=== PATIENT | male | born 1965 | race Caucasian/White ===

== ENCOUNTER 2022-10-07 22:37 | Inpatient (IN) ==
[2022-10-07] MEDS ORDERED: oxyCODONE/Acetamin 5/325 mg TAB PO ONE (22:50)
[2022-10-07 23:13] LABS: ABS Basophils 0.1 10^3/ul (0-0.2); ABS Eosinophils 0.2 10^3/ul (0-0.6); ABS Lymphocytes 1.5 10^3/ul (1.0-4.8); ABS Monocytes 1.1 10^3/ul (0-0.8); Eosinophil % 2.6 %; Hematocrit 27 % (42-52); Hemoglobin 8.1 g/dL (14.0-18.0); Lymphocyte % 16.4 %; Mean Corpuscular HGB Conc 30 g/dL (31-36); Mean Corpuscular Hemoglobin 24 pg (27-31); Mean Corpuscular Volume 79 fL (80-94); Mean Platelet Volume 7.5 fL (7.4-10.4); Platelet Count 219 10^3/uL (150-450); Red Blood Count 3.41 10^6 /uL (4.18-5.48); Red Cell Distribution Width 21 % (10-15); White Blood Count 8.9 10^3/uL (3.5-10.8)
[2022-10-07 23:18] LABS: INR 1.51 (0.88-1.18)
[2022-10-07 23:48] LABS: AST 11 U/L (13-39); Albumin 1.9 g/dL (3.2-5.2); Albumin/Globulin Ratio 0.6 (1-3); Alkaline Phosphatase 135 U/L (35-149); Anion Gap 8 mmol/L (2-11); Blood Urea Nitrogen 41 mg/dL (6-24); CO2 Carbon Dioxide 23 mmol/L (22-32); Calcium 7.3 mg/dL (8.6-10.3); Chloride 101 mmol/L (101-111); Creatinine, Serum 4.25 mg/dL (0.67-1.17); Glucose 61 mg/dL (70-100); Potassium 4.2 mmol/L (3.5-5.0); Sodium 132 mmol/L (135-145); Total Protein 4.9 g/dL (6.4-8.9); eGFR CKD-EPI 15.7 (>60)
[2022-10-07 23:53] LABS: ALT < 3 U/L (7-52)
[2022-10-08] MEDS ORDERED: Dextrose 50% Syringe 50 ml 25 GM/50 ML SYRINGE IV PUSH PRN (00:23)
[2022-10-08] MEDS ORDERED: HYDROmorphone 0.5 MG/0.5 ML SYRINGE IV SLOW PU ONE (01:31)
[2022-10-08 06:49] LABS: ABS Basophils 0.1 10^3/ul (0-0.2); ABS Eosinophils 0.3 10^3/ul (0-0.6); ABS Lymphocytes 1.3 10^3/ul (1.0-4.8); ABS Monocytes 1.1 10^3/ul (0-0.8); ABS Neutrophils 6.6 10^3/ul (1.5-7.7); Eosinophil % 3.2 %; Hematocrit 29 % (42-52); Hemoglobin 8.7 g/dL (14.0-18.0); Lymphocyte % 13.8 %; Mean Corpuscular HGB Conc 31 g/dL (31-36); Mean Corpuscular Hemoglobin 24 pg (27-31); Mean Corpuscular Volume 78 fL (80-94); Mean Platelet Volume 7.6 fL (7.4-10.4); Platelet Count 239 10^3/uL (150-450); Red Blood Count 3.64 10^6 /uL (4.18-5.48); Red Cell Distribution Width 21 % (10-15); White Blood Count 9.3 10^3/uL (3.5-10.8)
[2022-10-08 07:14] LABS: AST 10 U/L (13-39); Albumin 1.9 g/dL (3.2-5.2); Albumin/Globulin Ratio 0.7 (1-3); Alkaline Phosphatase 147 U/L (35-149); Anion Gap 7 mmol/L (2-11); Blood Urea Nitrogen 45 mg/dL (6-24); CO2 Carbon Dioxide 25 mmol/L (22-32); Calcium 7.3 mg/dL (8.6-10.3); Chloride 100 mmol/L (101-111); Creatinine, Serum 4.42 mg/dL (0.67-1.17); Globulin 2.9 g/dL (2-4); Glucose 59 mg/dL (70-100); Sodium 132 mmol/L (135-145); Total Protein 4.8 g/dL (6.4-8.9); eGFR CKD-EPI 14.9 (>60)
[2022-10-08 07:16] LABS: ALT < 3 U/L (7-52)
[2022-10-08] MEDS: CMCS: Fidaxomicin 200 mg TAB (NF) PO SCH ×2 (09:28→22:01)
[2022-10-08 10:49] LABS: Magnesium 1.5 mg/dL (1.9-2.7)
[2022-10-08 10:55] LABS: C Reactive Protein 83.61 mg/L (<8.01)
[2022-10-08] MEDS ORDERED: Magnesium Sulf 4 GM/100 ML IV 4,000 MG/100 ML BAG IVPB ONE (11:12)
[2022-10-08] MEDS: HYDROmorphone 0.5 MG/0.5 ML SYRINGE IV SLOW PU PRN ×2 (11:40→18:17)
[2022-10-08] MEDS: Albumin Human 5% 12.5 GM/250 ML BTL IV PRN (12:54)
[2022-10-08 14:44] LABS: Hepatitis B Surface Antigen Nonreactive (Nonreactive)
[2022-10-08] MEDS: Heparin 1,000 UNIT/ML 10 ml (10,000 UNITS) CATHLAB/DIALYSIS DIALYSIS SCH ×2 (15:33→16:41)
[2022-10-08] MEDS: oxyCODONE/Acetamin 5/325 mg TAB PO PRN ×2 (16:35→22:50)
[2022-10-08 17:19] LABS: Hepatitis B Surface Ab Not Immune (Immune)
[2022-10-09] MEDS: HYDROmorphone 0.5 MG/0.5 ML SYRINGE IV SLOW PU PRN ×4 (01:36→21:01)
[2022-10-09] MEDS: oxyCODONE/Acetamin 5/325 mg TAB PO PRN ×3 (06:02→18:23)
[2022-10-09 06:48] LABS: Calcium 7.5 mg/dL (8.6-10.3); Magnesium 2.1 mg/dL (1.9-2.7)
[2022-10-09 06:53] LABS: Creatinine, Serum 3.56 mg/dL (0.67-1.17); eGFR CKD-EPI 19.4 (>60)
[2022-10-09] MEDS: CMCS: Fidaxomicin 200 mg TAB (NF) PO SCH ×2 (08:53→21:29)
[2022-10-10] MEDS: HYDROmorphone 0.5 MG/0.5 ML SYRINGE IV SLOW PU PRN ×4 (01:27→14:20)
[2022-10-10] MEDS: CMCS: Fidaxomicin 200 mg TAB (NF) PO SCH ×2 (07:54→20:09)
[2022-10-10] MEDS: oxyCODONE/Acetamin 5/325 mg TAB PO PRN ×3 (07:55→22:52)
[2022-10-10] MEDS: Albumin Human 5% 12.5 GM/250 ML BTL IV PRN (10:34)
[2022-10-10] MEDS ORDERED: Albumin Human 25% 25 GM/100 ML BTL IV ONE (11:25)
[2022-10-10] MEDS: Heparin 1,000 UNIT/ML 10 ml (10,000 UNITS) CATHLAB/DIALYSIS DIALYSIS SCH (13:43)
[2022-10-10] MEDS ORDERED: HYDROmorphone 0.5 MG/0.5 ML SYRINGE IV SLOW PU PRN (15:45)
[2022-10-10] MEDS: HYDROmorphone 1 MG/1 ML SYRINGE IV SLOW PU PRN ×2 (17:58→22:51)
[2022-10-11] MEDS: HYDROmorphone 1 MG/1 ML SYRINGE IV SLOW PU PRN ×4 (02:02→20:01)
[2022-10-11 04:51] LABS: ABS Basophils 0.1 10^3/ul (0-0.2); ABS Eosinophils 0.2 10^3/ul (0-0.6); ABS Lymphocytes 2.1 10^3/ul (1.0-4.8); ABS Monocytes 1.4 10^3/ul (0-0.8); ABS Neutrophils 7.7 10^3/ul (1.5-7.7); Eosinophil % 1.4 %; Hematocrit 22 % (42-52); Hemoglobin 6.4 g/dL (14.0-18.0); Lymphocyte % 18.2 %; Mean Corpuscular HGB Conc 30 g/dL (31-36); Mean Corpuscular Hemoglobin 23 pg (27-31); Mean Corpuscular Volume 79 fL (80-94); Platelet Count 200 10^3/uL (150-450); Red Blood Count 2.72 10^6 /uL (4.18-5.48); Red Cell Distribution Width 21 % (10-15); White Blood Count 11.3 10^3/uL (3.5-10.8)
[2022-10-11 05:01] LABS: % Iron Saturation 20 % (15-55); Anion Gap 1 mmol/L (2-11); Blood Urea Nitrogen 38 mg/dL (6-24); CO2 Carbon Dioxide 28 mmol/L (22-32); Calcium 7.3 mg/dL (8.6-10.3); Chloride 102 mmol/L (101-111); Creatinine, Serum 3.47 mg/dL (0.67-1.17); Iron 21 ug/dL (50-212); Magnesium 1.8 mg/dL (1.9-2.7); Phosphorus 3.3 mg/dL (2.5-5.0); Potassium 4.1 mmol/L (3.5-5.0); Sodium 131 mmol/L (135-145); Total Iron Binding Capacity 105 mcg/dL (250-450); Transferrin < 75 mg/dL (203-362); Unsaturated Iron Binding 84 ug/dL
[2022-10-11 05:14] LABS: Glucose 45 mg/dL (70-100)
[2022-10-11 05:21] LABS: Ferritin > 1500.0 ng/mL (24-336)
[2022-10-11 08:55] LABS: Indirect Bilirubin 0.3 mg/dL (0.3-1.0); LDH 128 U/L (140-271)
[2022-10-11] MEDS: CMCS: Fidaxomicin 200 mg TAB (NF) PO SCH ×2 (10:49→20:00)
[2022-10-11] MEDS: oxyCODONE/Acetamin 5/325 mg TAB PO PRN ×3 (11:02→23:57)
[2022-10-11] MEDS ORDERED: Clindamycin 600 MG/D5W BAG 600 MG/50 ML BAG IV ONE (11:36)
[2022-10-11] MEDS ORDERED: Lidocaine 1% VIAL 10 MG/ML VIAL 30 ML ONE (14:02)
[2022-10-11] MEDS ORDERED: Heparin 2 UNITS/ML IVPREMIX 2,000 UNIT/1,000 ML BAG IV ONE (14:03)
[2022-10-11] MEDS ORDERED: Iohexol 350 (CONTRAST) 100 ML PAK IV ONE (14:03)
[2022-10-11] MEDS ORDERED: fentaNYL 100 mcg/2 ml 50 MCG/ML VIAL ONE (14:23)
[2022-10-11] MEDS ORDERED: Midazolam 5 mg/5 ml VIAL 1 mg/ml 5 ml VIAL (5 mg) ONE (14:23)
[2022-10-11] MEDS ORDERED: Heparin 1,000 UNIT/ML 10 ml (10,000 UNITS) CATHLAB/DIALYSIS ONE (14:59)
[2022-10-11 16:36] LABS: Hematocrit 25 % (42-52); Hemoglobin 7.6 g/dL (14.0-18.0); Mean Corpuscular HGB Conc 31 g/dL (31-36); Mean Corpuscular Hemoglobin 24 pg (27-31); Mean Corpuscular Volume 78 fL (80-94); Mean Platelet Volume 7.9 fL (7.4-10.4); Platelet Count 198 10^3/uL (150-450); Red Blood Count 3.19 10^6 /uL (4.18-5.48); Red Cell Distribution Width 21 % (10-15); White Blood Count 8.3 10^3/uL (3.5-10.8)
[2022-10-12] MEDS: HYDROmorphone 1 MG/1 ML SYRINGE IV SLOW PU PRN ×4 (03:12→22:29)
[2022-10-12 05:31] LABS: ABS Basophils 0.1 10^3/ul (0-0.2); ABS Eosinophils 0.2 10^3/ul (0-0.6); ABS Lymphocytes 1.3 10^3/ul (1.0-4.8); ABS Monocytes 0.9 10^3/ul (0-0.8); ABS Neutrophils 7.4 10^3/ul (1.5-7.7); Eosinophil % 2.2 %; Hematocrit 27 % (42-52); Hemoglobin 8.4 g/dL (14.0-18.0); Lymphocyte % 13.2 %; Mean Corpuscular HGB Conc 31 g/dL (31-36); Mean Corpuscular Hemoglobin 25 pg (27-31); Mean Corpuscular Volume 80 fL (80-94); Mean Platelet Volume 8.3 fL (7.4-10.4); Platelet Count 267 10^3/uL (150-450); Red Blood Count 3.36 10^6 /uL (4.18-5.48); Red Cell Distribution Width 21 % (10-15); White Blood Count 9.9 10^3/uL (3.5-10.8)
[2022-10-12] MEDS: oxyCODONE/Acetamin 5/325 mg TAB PO PRN ×3 (05:48→19:50)
[2022-10-12 05:50] LABS: Activated Partial Thrombo Time 34.1 seconds (26.0-38.0); INR 1.32 (0.88-1.18)
[2022-10-12 06:13] LABS: ALT 4 U/L (7-52); Albumin 1.9 g/dL (3.2-5.2); Albumin/Globulin Ratio 0.7 (1-3); Alkaline Phosphatase 199 U/L (35-149); Blood Urea Nitrogen 50 mg/dL (6-24); CO2 Carbon Dioxide 24 mmol/L (22-32); Calcium 7.4 mg/dL (8.6-10.3); Chloride 101 mmol/L (101-111); Creatinine, Serum 4.14 mg/dL (0.67-1.17); Globulin 2.9 g/dL (2-4); Glucose 75 mg/dL (70-100); Magnesium 1.9 mg/dL (1.9-2.7); Sodium 131 mmol/L (135-145); Total Protein 4.8 g/dL (6.4-8.9); eGFR CKD-EPI 16.2 (>60)
[2022-10-12 06:16] LABS: Anion Gap 6 mmol/L (2-11)
[2022-10-12 06:30] LABS: Potassium, Whole Blood 5.2 mmol/L (3.4-4.5)
[2022-10-12 07:28] LABS: Phosphorus 4.8 mg/dL (2.5-5.0)
[2022-10-12] MEDS: CMCS: Fidaxomicin 200 mg TAB (NF) PO SCH ×3 (09:05→22:28)
[2022-10-12] MEDS: Heparin 1,000 UNIT/ML 10 ml (10,000 UNITS) CATHLAB/DIALYSIS DIALYSIS SCH ×4 (16:22→18:55)
[2022-10-12] MEDS: Albumin Human 5% 12.5 GM/250 ML BTL IV PRN (16:22)
[2022-10-12] MEDS ORDERED: Albumin Human 25% 25 GM/100 ML BTL IV ONE (16:52)
[2022-10-13] MEDS: oxyCODONE/Acetamin 5/325 mg TAB PO PRN ×3 (02:59→19:29)
[2022-10-13] MEDS: HYDROmorphone 1 MG/1 ML SYRINGE IV SLOW PU PRN ×4 (03:37→21:45)
[2022-10-13 06:33] LABS: Hematocrit 26 % (42-52); Hemoglobin 8.3 g/dL (14.0-18.0); Mean Corpuscular HGB Conc 32 g/dL (31-36); Mean Corpuscular Hemoglobin 26 pg (27-31); Mean Corpuscular Volume 79 fL (80-94); Mean Platelet Volume 8.4 fL (7.4-10.4); Platelet Count 243 10^3/uL (150-450); Red Blood Count 3.24 10^6 /uL (4.18-5.48); Red Cell Distribution Width 21 % (10-15); White Blood Count 9.4 10^3/uL (3.5-10.8)
[2022-10-13 07:08] LABS: Calcium 7.4 mg/dL (8.6-10.3); Creatinine, Serum 3.49 mg/dL (0.67-1.17); Phosphorus 3.7 mg/dL (2.5-5.0); eGFR CKD-EPI 19.8 (>60)
[2022-10-13] MEDS: CMCS: Fidaxomicin 200 mg TAB (NF) PO SCH ×2 (08:56→21:44)
[2022-10-13] MEDS ORDERED: HYDROmorphone 0.5 MG/0.5 ML SYRINGE IV SLOW PU ONE (16:35)
[2022-10-14] MEDS ORDERED: Calcium Gluconate 1 GM/10 ML VIAL (in Pyxis) IV PUSH ONE (00:03)
[2022-10-14] MEDS ORDERED: Atropine 1 MG/ML INJ 1 ML VIAL IV PUSH ONE (00:08)
[2022-10-14] MEDS ORDERED: Atropine 0.1 MG/ML 10 ml SYR (1 mg) ONE (00:09)
[2022-10-14] MEDS ORDERED: Sodium Bicarbonate 8.4% VIAL 1 MEQ/ML 50 ml VIAL (50 meq) IV ONE (00:31)
[2022-10-14] MEDS: Sodium Bicarbonate 8.4% SYR 50 ml SYRINGE ONE ×2 (00:32→01:53)
[2022-10-14] MEDS ORDERED: Midazolam 5 mg/5 ml VIAL 1 mg/ml 5 ml VIAL (5 mg) ONE ×3 (00:46→07:55)
[2022-10-14] MEDS ORDERED: fentaNYL 100 mcg/2 ml 50 MCG/ML VIAL ONE ×3 (00:46→07:55)
[2022-10-14 00:49] LABS: Venous Bicarbonate HCO3 22.2 mmol/L (24-28)
[2022-10-14] MEDS ORDERED: Norepinephrine 16MCG/ML BAGD5W 4,000 MCG/250 ML BAG IV ONE (00:49)
[2022-10-14] MEDS: Norepinephrine 16MCG/ML BAGD5W 4,000 MCG/250 ML BAG IV SCH ×6 (00:58→21:34)
[2022-10-14] MEDS ORDERED: DOPamine 800 MG/250 ML IVPREM 800 MG/250 ML ML CENTR SCH (01:00)
[2022-10-14 01:06] LABS: ABS Basophils 0.1 10^3/ul (0-0.2); ABS Eosinophils 0.2 10^3/ul (0-0.6); ABS Lymphocytes 2.5 10^3/ul (1.0-4.8); ABS Monocytes 1.3 10^3/ul (0-0.8); ABS Neutrophils 6.2 10^3/ul (1.5-7.7); Eosinophil % 2.4 %; Hematocrit 26 % (42-52); Lymphocyte % 24.1 %; Mean Corpuscular HGB Conc 31 g/dL (31-36); Mean Corpuscular Hemoglobin 25 pg (27-31); Mean Corpuscular Volume 82 fL (80-94); Mean Platelet Volume 8.7 fL (7.4-10.4); Platelet Count 265 10^3/uL (150-450); Red Blood Count 3.19 10^6 /uL (4.18-5.48); Red Cell Distribution Width 21 % (10-15); White Blood Count 10.4 10^3/uL (3.5-10.8)
[2022-10-14 01:07] LABS: INR 1.27 (0.88-1.18)
[2022-10-14 01:18] LABS: Albumin 2.1 g/dL (3.2-5.2); Albumin/Globulin Ratio 0.8 (1-3); CRP High Sensitivity 59.44 mg/L (<2.00); Calcium 7.6 mg/dL (8.6-10.3); Creatinine, Serum 4.11 mg/dL (0.67-1.17); Globulin 2.8 g/dL (2-4); Magnesium 1.8 mg/dL (1.9-2.7); Phosphorus 4.2 mg/dL (2.5-5.0); Total Bilirubin 0.4 mg/dL (0.2-1.0); Total Protein 4.9 g/dL (6.4-8.9); eGFR CKD-EPI 16.3 (>60)
[2022-10-14 01:24] LABS: Potassium 5.2 mmol/L (3.5-5.0)
[2022-10-14 01:34] LABS: TSH Ultra Thyroid Stim Horm 10.55 mcIU/mL (0.34-5.60)
[2022-10-14] MEDS ORDERED: Heparin 2 UNITS/ML 1000 mls 1,000 ML IV ONE (01:44)
[2022-10-14] MEDS ORDERED: Lidocaine 1% MPF 5 ML VIAL ONE (01:44)
[2022-10-14] MEDS ORDERED: fentaNYL 100 mcg/2 ml 50 MCG/ML VIAL IV SLOW PU ONE ×2 (01:51→10:13)
[2022-10-14] MEDS ORDERED: Norepinephrine 16MCG/ML BAG NS 4,000 MCG/250 ML BAG IV ONE (02:46)
[2022-10-14 03:38] LABS: Erythrocyte Sed Rate 40 mm/Hr (0-19)
[2022-10-14] MEDS: HYDROmorphone 1 MG/1 ML SYRINGE IV SLOW PU PRN ×3 (04:56→19:25)
[2022-10-14 06:16] LABS: Hematocrit 29 % (42-52); Hemoglobin 9.1 g/dL (14.0-18.0); Mean Corpuscular HGB Conc 31 g/dL (31-36); Mean Corpuscular Hemoglobin 25 pg (27-31); Mean Corpuscular Volume 79 fL (80-94); Mean Platelet Volume 8.1 fL (7.4-10.4); Platelet Count 301 10^3/uL (150-450); Red Blood Count 3.68 10^6 /uL (4.18-5.48); Red Cell Distribution Width 21 % (10-15); White Blood Count 12.1 10^3/uL (3.5-10.8)
[2022-10-14] MEDS: oxyCODONE/Acetamin 5/325 mg TAB PO PRN ×2 (06:28→17:14)
[2022-10-14 06:55] LABS: Calcium 7.6 mg/dL (8.6-10.3); Creatinine, Serum 4.2 mg/dL (0.67-1.17); Phosphorus 4.5 mg/dL (2.5-5.0); eGFR CKD-EPI 15.9 (>60)
[2022-10-14 06:58] LABS: Potassium 5.3 mmol/L (3.5-5.0)
[2022-10-14] MEDS ORDERED: Flumazenil 0.5 mg/5 ml 0.1 MG/ML 5 ml VIAL ONE (07:55)
[2022-10-14] MEDS ORDERED: Naloxone 0.4 mg VIAL 0.4 mg/ml 1 ml VIAL ONE (07:55)
[2022-10-14] MEDS ORDERED: Flumazenil 0.5 mg/5 ml 0.1 MG/ML 5 ml VIAL IV PRN (08:18)
[2022-10-14] MEDS ORDERED: Naloxone 0.4 mg VIAL 0.4 mg/ml 1 ml VIAL IV PUSH PRN (08:18)
[2022-10-14] MEDS ORDERED: Midazolam 10 mg/10 ml VIAL 1 mg/ml 10 ml VIAL (10 mg) IV SLOW PU ONE (08:18)
[2022-10-14] MEDS ORDERED: Dextrose 50% Syringe 50 ml 25 GM/50 ML SYRINGE IV PUSH ONE (08:40)
[2022-10-14] MEDS: Heparin 1,000 UNIT/ML 10 ml (10,000 UNITS) CATHLAB/DIALYSIS DIALYSIS SCH ×4 (10:10→13:22)
[2022-10-14] MEDS ORDERED: Vancomycin per Pharmacy 1 EA NOTE FOLLOW UP PRN (12:39)
[2022-10-14] MEDS: CMCS: Fidaxomicin 200 mg TAB (NF) PO SCH ×2 (13:14→21:51)
[2022-10-14] MEDS ORDERED: cefTRIAXone 2 gm/50 mL D5W 2 GM/50 ML BAG IV SCH (14:00)
[2022-10-14] MEDS ORDERED: Vancomycin 1,250 MG in NS 0.9% 250 ml 250 ML IVPB ONE (15:00)
[2022-10-15] MEDS: HYDROmorphone 1 MG/1 ML SYRINGE IV SLOW PU PRN ×3 (01:40→10:49)
[2022-10-15] MEDS: Norepinephrine 16MCG/ML BAGD5W 4,000 MCG/250 ML BAG IV SCH (03:29)
[2022-10-15] MEDS: oxyCODONE/Acetamin 5/325 mg TAB PO PRN ×2 (10:04)
[2022-10-15] MEDS ORDERED: Norepinephrine 16MCG/ML BAGD5W 4,000 MCG/250 ML BAG IV SCH (10:10)
[2022-10-15] MEDS: CMCS: Fidaxomicin 200 mg TAB (NF) PO SCH (10:18)
[2022-10-15 11:44] VITALS: BP 83/68
[2022-10-15] MEDS ORDERED: cefTRIAXone 2 GM ADDV.VIAL 2 GM in NS 0.9% 100 ml BAG 100 ML IV SCH (14:00)
[2022-10-17] MEDS ORDERED: Vancomycin Random Level NOTE FOLLOW UP ONE (06:00)
== END 2022-10-15 11:20 | disposition short-term general hospital (02) | DRG 682 ==
LOC: SUATTDRO 22:37 → MEDTELE 22:37 → ICU 10-14 00:10
PROVIDERS: ADMIT Internal Medicine; ATTEND Internal Medicine